=== PATIENT | female | born 1935 | race Caucasian/White ===

== ENCOUNTER → 2017-08-27 | Outpatient (CLI) | payer MEDICARE, OTHER ==
[~2017-08-27] MED LIST: ALEN70 PO; CALCA500CH; COMPLETE MULTI1 EAC1; FISH1000; HYDACE5 PO; PENVK500 PO; VITAMIN D32000 UNI1
== END | disposition home or self-care (01) ==
LOC: LAB 07:45 → LAB SHORT 07:45 → LAB FUT 08-16 09:30
DX: J18.9 Pneumonia, unspecified organism (principal)
CPT/HCPCS: 87070; 87205

== ENCOUNTER 2017-08-31 07:54 | Day surgery (SDC) | payer MEDICARE, OTHER ==
[2017-08-31] MEDS ORDERED: CHLO4 PO (08:34)
[2017-08-31] MEDS ORDERED: [UNRECOGNIZED DRUG - OTHER] PO (08:34)
[2017-08-31] MEDS ORDERED: Pseudoephedrine30 MG PO (08:35)
[2017-08-31] MEDS ORDERED: ALBU90OI6 INH (08:36)
[2017-08-31] MEDS ORDERED: Cholecalciferol1 GM PO (08:38)
[2017-08-31] MEDS ORDERED: Advair Hfa 230-12 GM INH (08:38)
[2017-08-31] MEDS ORDERED: FISH OIL 1,0001 EACH PO (08:40)
[2017-08-31] MEDS ORDERED: TUMS300 MG PO (08:40)
[2017-08-31] MEDS ORDERED: Hair, Skin & N1 EACH PO (08:41)
== END 2017-08-31 22:42 | disposition home or self-care (01) ==
LOC: ORSCMMR 07:54 → ORD 09:30 → ORSCMMR 22:42
PROVIDERS: Surgery
PROC: 07T20ZZ Resection of Left Neck Lymphatic, Open Approach (ICD-10-PCS; principal; 2017-08-31 09:30)
DX: C77.0 Secondary and unspecified malignant neoplasm of lymph nodes of head, face and neck (principal); C34.90 Malignant neoplasm of unspecified part of unspecified bronchus or lung; E78.00 Pure hypercholesterolemia, unspecified; Z79.899 Other long term (current) drug therapy; Z87.891 Personal history of nicotine dependence
CPT/HCPCS: 88305; 88341; 88342; J0690; J2250; J3010; J7120